=== PATIENT | female | born 1950 | race Caucasian/White ===

== ENCOUNTER 2017-06-01 10:00 | Inpatient (IN) ==
[~2017-06-01 10:00] MED LIST: Metoprolol XL (24 HR) Succ 25 MG TAB.ER.24H PO SCH
[2017-06-01] MEDS ORDERED: *HR* HYDROcodone/Acet 7.5/325 mg TABLET PO PRN (10:20)
[2017-06-01] MEDS ORDERED: Ondansetron ODT 4 MG TAB.RAPDIS SL PRN (12:27)
[2017-06-01] MEDS: Apixaban 5 MG TABLET PO SCH (20:51)
[2017-06-01] MEDS: Magnesium Oxide 400 MG TABLET PO SCH (20:51)
[2017-06-02 05:18] LABS: Basophils % 0.5 %; Eosinophils # 0.4 K/mcL (0.0-0.6); Hematocrit 45.1 % (35.3-44.9); Hemoglobin 15.7 g/dL (11.5-15.4); Immature Granulocytes % 0.3 % (0-4); Lymphocytes # 2.7 K/mcL (0.6-4.6); Lymphocytes % 33.8 %; Mean Corpuscular HGB Conc 34.8 g/dL (31.6-35.5); Mean Corpuscular Hemoglobin 31.8 pg (28.0-33.3); Mean Corpuscular Volume 91.3 fL (83.0-100.0); Mean Platelet Volume 12.2 fL (9.4-12.4); Monocytes # 0.6 K/mcL (0.0-1.3); Neutrophils # 4.2 K/mcL (1.6-8.9); Platelet Count 183 K/mcL (140-400); Red Blood Count 4.94 M/mcL (3.82-4.97); Red Cell Distribution Width 12.6 % (11.5-14.5); Segmented Neutrophils % 53.4 %
[2017-06-02 05:29] LABS: INR 1.4; Prothrombin Time 15.6 Seconds (9.4-12.1)
[2017-06-02 05:31] LABS: Activated Partial Thrombo Time 35.1 Seconds (26.0-36.0)
[2017-06-02 05:41] LABS: Calcium 9.2 mg/dL (8.6-10.3); Potassium 4.9 mEq/L (3.5-5.1)
[2017-06-02] MEDS: Magnesium Oxide 400 MG TABLET PO SCH ×2 (07:51→20:58)
[2017-06-02] MEDS: Metoprolol XL (24 HR) Succ 25 MG TAB.ER.24H PO SCH (07:51)
[2017-06-02] MEDS: Apixaban 5 MG TABLET PO SCH ×2 (08:03→20:58)
--- NOTE | 2017-06-02 10:56 | Internal Med Progress Note ---
Date of Encounter: 06/02/17 Time of Encounter: 10:45 - Assessment and plan (1) TIA (transient ischemic attack) Current Visit: No Status: Acute Assessment and plan: June 02. Continue Plavix Qualifiers: Transient cerebral ischemia type: unspecified Qualified Code(s): G45.9 - Transient cerebral ischemic attack, unspecified (2) Parkinsons disease Current Visit: No Status: Chronic Assessment and plan: June 02. Observe off medication. (3) Hypertension Current Visit: No Status: Chronic Assessment and plan: June 02. Continue Toprol Qualifiers: Hypertension type: essential hypertension Qualified Code(s): I10 - Essential (primary) hypertension (4) Atrial fibrillation Current Visit: No Status: Chronic Assessment and plan: June 02. Continue Eliquis Qualifiers: Atrial fibrillation type: chronic Qualified Code(s): I48.2 - Chronic atrial fibrillation - Subjective Interval history: June 02. She was hospitalized in acute care at [facility] May 26- after an episode of decreased responsiveness at home. After evaluation it was felt she possibly had right MCA distribution TIA. Carotid Doppler studies were negative. She was started empirically on Plavix. Oral anticoagulant was continued for underlying atrial fibrillation. ST was consulted for dysphagia but felt she did not require further workup or intervention. PT and OT were consulted and she made satisfactory progress but it was felt she would benefit from swing bed stay for ongoing therapy. She has no complaints today. Her reports she appears to be lethargic. He has noticed this multiple times over the past 2 weeks. - Constitutional Vitals: Temp Pulse Resp BP Pulse Ox 97.6 F 102 18 120/78 94 06/01/17 19:30 06/02/17 07:25 06/01/17 19:30 06/01/17 19:30 06/02/17 07:25 Exam: She is resting comfortably in bed. She denies pain or dyspnea. She is lethargic and drifted off to sleep in the few minutes I was in the room. I reviewed her medications and lab results. Internal Medicine: Result - Labs CBC & Chem 7: 06/02/17 05:00 06/02/17 05:00 Labs: Short CBC 06/02/17 Range/Units 05:00 WBC 7.9 (4.3-11.1) K/mcL Hgb 15.7 H (11.5-15.4) g/dL Hct 45.1 H (35.3-44.9) % Plt Count 183 (140-400) K/mcL Neutrophils # 4.2 (1.6-8.9) K/mcL BMP 06/02/17 05:00 Sodium 135 L Potassium 4.9 Chloride 100 Carbon Dioxide 27 BUN 19 Creatinine 1.22 H Glucose 138 H Calcium 9.2 - ABG Interpretation ABG results: PT/INR, D-dimer PT 15.6 Seconds (9.4-12.1) H 06/02/17 05:00 Consult Discharge Plan - Plan Referrals: Lexis Anderson DO [Primary Care Provider] - 1 week
[2017-06-03 03:54] LABS: Basophils # 0.1 K/mcL (0.0-0.2); Basophils % 0.6 %; Eosinophils # 0.3 K/mcL (0.0-0.6); Eosinophils % 3.8 %; Hematocrit 42.1 % (35.3-44.9); Hemoglobin 14.8 g/dL (11.5-15.4); Immature Granulocytes % 0.1 % (0-4); Lymphocytes # 2.7 K/mcL (0.6-4.6); Lymphocytes % 30.8 %; Mean Corpuscular HGB Conc 35.2 g/dL (31.6-35.5); Mean Corpuscular Hemoglobin 32.2 pg (28.0-33.3); Mean Corpuscular Volume 91.5 fL (83.0-100.0); Mean Platelet Volume 11.7 fL (9.4-12.4); Monocytes # 0.7 K/mcL (0.0-1.3); Monocytes % 7.9 %; Platelet Count 171 K/mcL (140-400); Red Cell Distribution Width 12.6 % (11.5-14.5); Segmented Neutrophils % 56.8 %
[2017-06-03 04:15] LABS: Calcium 8.9 mg/dL (8.6-10.3); Magnesium 1.9 mg/dL (1.6-2.6); Potassium 4.2 mEq/L (3.5-5.1)
[2017-06-03] MEDS: Metoprolol XL (24 HR) Succ 25 MG TAB.ER.24H PO SCH (07:46)
[2017-06-03] MEDS: Magnesium Oxide 400 MG TABLET PO SCH ×2 (07:47→20:15)
[2017-06-03] MEDS: Apixaban 5 MG TABLET PO SCH ×2 (07:47→20:15)
[2017-06-04] MEDS: Apixaban 5 MG TABLET PO SCH ×2 (08:44→22:46)
[2017-06-04] MEDS: Metoprolol XL (24 HR) Succ 25 MG TAB.ER.24H PO SCH (08:44)
[2017-06-04] MEDS: Magnesium Oxide 400 MG TABLET PO SCH ×2 (08:44→22:46)
[2017-06-04] MEDS: *HR* HYDROcodone/Acet 5/325 mg TABLET PO PRN (09:58)
--- NOTE | 2017-06-04 15:21 | Internal Med Progress Note ---
Date of Encounter: 06/04/17 Time of Encounter: 15:15 - Assessment and plan (1) TIA (transient ischemic attack) Current Visit: No Status: Acute Assessment and plan: June 02. Continue Plavix Qualifiers: Transient cerebral ischemia type: unspecified Qualified Code(s): G45.9 - Transient cerebral ischemic attack, unspecified (2) Parkinsons disease Current Visit: No Status: Chronic Assessment and plan: June 02. Observe off medication. (3) Hypertension Current Visit: No Status: Chronic Assessment and plan: June 02. Continue Toprol Qualifiers: Hypertension type: essential hypertension Qualified Code(s): I10 - Essential (primary) hypertension (4) Atrial fibrillation Current Visit: No Status: Chronic Assessment and plan: June 02. Continue Eliquis Qualifiers: Atrial fibrillation type: chronic Qualified Code(s): I48.2 - Chronic atrial fibrillation - Subjective Interval history: June 02. She was hospitalized in acute care at [facility] May 26- after an episode of decreased responsiveness at home. After evaluation it was felt she possibly had right MCA distribution TIA. Carotid Doppler studies were negative. She was started empirically on Plavix. Oral anticoagulant was continued for underlying atrial fibrillation. ST was consulted for dysphagia but felt she did not require further workup or intervention. PT and OT were consulted and she made satisfactory progress but it was felt she would benefit from swing bed stay for ongoing therapy. She has no complaints today. Her reports she appears to be lethargic. He has noticed this multiple times over the past 2 weeks. June 04. She has no new complaints and denies pain. She feels she is making some progress in therapy. - Constitutional Vitals: Temp Pulse Resp BP Pulse Ox 97.6 F 77 17 121/77 91 06/04/17 06:47 06/04/17 06:47 06/04/17 06:47 06/04/17 06:47 06/04/17 06:47 Exam: She is resting comfortably in bed. She is oriented to location and knows who I am. Her affect is slightly flat. Her speech is appropriate. I reviewed her medications and lab results. Internal Medicine: Result - Labs CBC & Chem 7: 06/03/17 03:40 06/03/17 03:40 - ABG Interpretation ABG results: PT/INR, D-dimer PT 15.6 Seconds (9.4-12.1) H 06/02/17 05:00 Consult Discharge Plan - Plan Referrals: Lexis Andreson DO [Primary Care Provider] - 1 week
[2017-06-05 05:20] LABS: Basophils # 0.1 K/mcL (0.0-0.2); Basophils % 0.8 %; Eosinophils # 0.3 K/mcL (0.0-0.6); Eosinophils % 4.1 %; Hematocrit 42.8 % (35.3-44.9); Immature Granulocytes % 0.3 % (0-4); Lymphocytes # 2.5 K/mcL (0.6-4.6); Lymphocytes % 38.2 %; Mean Corpuscular Hemoglobin 31.8 pg (28.0-33.3); Mean Corpuscular Volume 90.7 fL (83.0-100.0); Mean Platelet Volume 12.4 fL (9.4-12.4); Monocytes # 0.6 K/mcL (0.0-1.3); Monocytes % 9.7 %; Neutrophils # 3.1 K/mcL (1.6-8.9); Platelet Count 165 K/mcL (140-400); Red Blood Count 4.72 M/mcL (3.82-4.97); Red Cell Distribution Width 12.2 % (11.5-14.5); Segmented Neutrophils % 46.9 %
[2017-06-05 05:39] LABS: Calcium 8.9 mg/dL (8.6-10.3); Magnesium 1.9 mg/dL (1.6-2.6)
[2017-06-05] MEDS: Apixaban 5 MG TABLET PO SCH ×2 (08:22→20:32)
[2017-06-05] MEDS: Metoprolol XL (24 HR) Succ 25 MG TAB.ER.24H PO SCH (08:23)
[2017-06-05] MEDS: Magnesium Oxide 400 MG TABLET PO SCH ×2 (08:23→20:32)
[2017-06-05] MEDS: *HR* HYDROcodone/Acet 5/325 mg TABLET PO PRN (11:37)
[2017-06-06] MEDS: Magnesium Oxide 400 MG TABLET PO SCH ×2 (08:43→20:02)
[2017-06-06] MEDS: Metoprolol XL (24 HR) Succ 25 MG TAB.ER.24H PO SCH (08:43)
[2017-06-06] MEDS: Apixaban 5 MG TABLET PO SCH ×2 (08:45→20:02)
--- NOTE | 2017-06-06 15:44 | Internal Med Progress Note ---
Date of Encounter: 06/06/17 Time of Encounter: 15:35 - Assessment and plan (1) TIA (transient ischemic attack) Current Visit: No Status: Acute Assessment and plan: June 02. Continue Plavix Qualifiers: Transient cerebral ischemia type: unspecified Qualified Code(s): G45.9 - Transient cerebral ischemic attack, unspecified (2) Parkinsons disease Current Visit: No Status: Chronic Assessment and plan: June 02. Observe off medication. (3) Hypertension Current Visit: No Status: Chronic Assessment and plan: June 02. Continue Toprol June 06. Blood pressure show significant fluctuation. Continue present regimen. Qualifiers: Hypertension type: essential hypertension Qualified Code(s): I10 - Essential (primary) hypertension (4) Atrial fibrillation Current Visit: No Status: Chronic Assessment and plan: June 02. Continue Eliquis Qualifiers: Atrial fibrillation type: chronic Qualified Code(s): I48.2 - Chronic atrial fibrillation - Subjective Interval history: June 02. She was hospitalized in acute care at [facility] May 26 after an episode of decreased responsiveness at home. After evaluation it was felt she possibly had right MCA distribution TIA. Carotid Doppler studies were negative. She was started empirically on Plavix. Oral anticoagulant was continued for underlying atrial fibrillation. ST was consulted for dysphagia but felt she did not require further workup or intervention. PT and OT were consulted and she made satisfactory progress but it was felt she would benefit from swing bed stay for ongoing therapy. She has no complaints today. Her reports she appears to be lethargic. He has noticed this multiple times over the past 2 weeks. June 04. She has no new complaints and denies pain. She feels she is making some progress in therapy. June 06. She has no new complaints. She reports she has chronic back and neck pain but this is unchanged. - Constitutional Vitals: Temp Pulse Resp BP Pulse Ox 97.7 F 60 20 109/59 95 06/06/17 11:49 06/06/17 11:49 06/06/17 11:49 06/06/17 11:49 06/06/17 11:49 Exam: She is resting comfortably in bed and appears in no acute distress. Her affect is bright and cheerful. Her conversation is appropriate. I reviewed her medications and lab results. Internal Medicine: Result - Labs CBC & Chem 7: 06/05/17 04:31 06/05/17 04:31 - ABG Interpretation ABG results: PT/INR, D-dimer PT 15.6 Seconds (9.4-12.1) H 06/02/17 05:00 Consult Discharge Plan - Plan Referrals: Lexis Anderson DO [Primary Care Provider] - 1 week
[2017-06-07] MEDS: Metoprolol XL (24 HR) Succ 25 MG TAB.ER.24H PO SCH (08:25)
[2017-06-07] MEDS: Magnesium Oxide 400 MG TABLET PO SCH ×2 (08:25→20:22)
[2017-06-07] MEDS: Apixaban 5 MG TABLET PO SCH ×2 (08:25→20:22)
[2017-06-07] MEDS: *HR* HYDROcodone/Acet 5/325 mg TABLET PO PRN ×2 (11:17→18:16)
[2017-06-08] MEDS: Magnesium Oxide 400 MG TABLET PO SCH ×2 (08:00→19:31)
[2017-06-08] MEDS: Apixaban 5 MG TABLET PO SCH ×2 (08:00→19:32)
[2017-06-08] MEDS: Metoprolol XL (24 HR) Succ 25 MG TAB.ER.24H PO SCH (09:30)
[2017-06-08] MEDS: *HR* HYDROcodone/Acet 5/325 mg TABLET PO PRN ×2 (12:11→19:32)
[2017-06-09] MEDS: Apixaban 5 MG TABLET PO SCH ×2 (08:23→20:19)
[2017-06-09] MEDS: Magnesium Oxide 400 MG TABLET PO SCH ×2 (08:23→20:19)
[2017-06-09] MEDS: Metoprolol XL (24 HR) Succ 25 MG TAB.ER.24H PO SCH ×2 (08:27→17:28)
[2017-06-09] MEDS: *HR* HYDROcodone/Acet 5/325 mg TABLET PO PRN ×2 (08:48→17:27)
--- NOTE | 2017-06-09 16:44 | Internal Med Progress Note ---
Date of Encounter: 06/09/17 Time of Encounter: 16:35 - Assessment and plan (1) TIA (transient ischemic attack) Current Visit: No Status: Acute Assessment and plan: June 02. Continue Plavix Qualifiers: Transient cerebral ischemia type: unspecified Qualified Code(s): G45.9 - Transient cerebral ischemic attack, unspecified (2) Parkinsons disease Current Visit: No Status: Chronic Assessment and plan: June 02. Observe off medication. June 09. Symptoms have essentially resolved off Reglan. We will not workup or treat further. (3) Hypertension Current Visit: No Status: Chronic Assessment and plan: June 02. Continue Toprol June 06. Blood pressure show significant fluctuation. Continue present regimen. June 09. Blood pressures are remaining borderline low. Will decrease Toprol and start Lanoxin for rate control. Qualifiers: Hypertension type: essential hypertension Qualified Code(s): I10 - Essential (primary) hypertension (4) Atrial fibrillation Current Visit: No Status: Chronic Assessment and plan: June 02. Continue Eliquis Qualifiers: Atrial fibrillation type: chronic Qualified Code(s): I48.2 - Chronic atrial fibrillation - Subjective Interval history: June 02. She was hospitalized in acute care at [facility] May 26 after an episode of decreased responsiveness at home. After evaluation it was felt she possibly had right MCA distribution TIA. Carotid Doppler studies were negative. She was started empirically on Plavix. Oral anticoagulant was continued for underlying atrial fibrillation. ST was consulted for dysphagia but felt she did not require further workup or intervention. PT and OT were consulted and she made satisfactory progress but it was felt she would benefit from swing bed stay for ongoing therapy. She has no complaints today. Her reports she appears to be lethargic. He has noticed this multiple times over the past 2 weeks. June 04. She has no new complaints and denies pain. She feels she is making some progress in therapy. June 06. She has no new complaints. She reports she has chronic back and neck pain but this is unchanged. June 09. She has no new complaints. - Constitutional Vitals: Temp Pulse Resp BP Pulse Ox 97.6 F 99 17 99/67 97 06/08/17 19:19 06/09/17 10:53 06/09/17 10:53 06/09/17 10:53 06/08/17 19:19 Exam: She is resting comfortably in bed and appears in no acute distress. Her affect is bright and cheerful. Extremities show no edema. I reviewed her medications and lab results. Internal Medicine: Result - Labs CBC & Chem 7: 06/05/17 04:31 06/05/17 04:31 - ABG Interpretation ABG results: PT/INR, D-dimer PT 15.6 Seconds (9.4-12.1) H 06/02/17 05:00 Consult Discharge Plan - Plan Referrals: Lexis Anderson DO [Primary Care Provider] - 1 week
[2017-06-10] MEDS: *HR* HYDROcodone/Acet 5/325 mg TABLET PO PRN ×4 (03:11→23:26)
[2017-06-10 07:04] LABS: Basophils # 0.1 K/mcL (0.0-0.2); Basophils % 0.7 %; Eosinophils # 0.4 K/mcL (0.0-0.6); Eosinophils % 5.1 %; Hematocrit 42.1 % (35.3-44.9); Hemoglobin 14.7 g/dL (11.5-15.4); Immature Granulocytes % 0.1 % (0-4); Lymphocytes # 3.1 K/mcL (0.6-4.6); Lymphocytes % 45.5 %; Mean Corpuscular HGB Conc 34.9 g/dL (31.6-35.5); Mean Corpuscular Hemoglobin 31.8 pg (28.0-33.3); Mean Corpuscular Volume 91.1 fL (83.0-100.0); Mean Platelet Volume 11.8 fL (9.4-12.4); Monocytes # 0.5 K/mcL (0.0-1.3); Monocytes % 6.7 %; Neutrophils # 2.9 K/mcL (1.6-8.9); Platelet Count 195 K/mcL (140-400); Red Blood Count 4.62 M/mcL (3.82-4.97); Red Cell Distribution Width 12.3 % (11.5-14.5); Segmented Neutrophils % 41.9 %
[2017-06-10 07:25] LABS: BUN/Creatinine Ratio 15 (6-26); Blood Urea Nitrogen 15 mg/dL (8-23); Carbon Dioxide 28 mEq/L (23-29); Chloride 101 mEq/L (98-107); Glucose 116 mg/dL (70-105); Magnesium 1.9 mg/dL (1.6-2.6); Osmolality,Calculated 284 (280-300); Potassium 4.1 mEq/L (3.5-5.1); Sodium 136 mEq/L (136-145); eGFR For African Americans > 60 (> 60); eGFR For Non-African Americans 54 (> 60)
[2017-06-10] MEDS: Metoprolol XL (24 HR) Succ 25 MG TAB.ER.24H PO SCH (08:29)
[2017-06-10] MEDS: *HR* Digoxin 0.125 MG TABLET PO SCH (08:29)
[2017-06-10] MEDS: Apixaban 5 MG TABLET PO SCH ×2 (08:29→20:03)
[2017-06-10] MEDS: Magnesium Oxide 400 MG TABLET PO SCH ×2 (08:30→20:03)
[2017-06-11] MEDS: *HR* HYDROcodone/Acet 5/325 mg TABLET PO PRN ×3 (06:13→22:30)
[2017-06-11] MEDS: Magnesium Oxide 400 MG TABLET PO SCH ×2 (07:55→22:28)
[2017-06-11] MEDS: Metoprolol XL (24 HR) Succ 25 MG TAB.ER.24H PO SCH (07:55)
[2017-06-11] MEDS: *HR* Digoxin 0.125 MG TABLET PO SCH (07:55)
[2017-06-11] MEDS: Apixaban 5 MG TABLET PO SCH ×2 (07:55→22:28)
--- NOTE | 2017-06-11 11:38 | Internal Med Progress Note ---
Date of Encounter: 06/11/17 Time of Encounter: 11:30 - Assessment and plan (1) TIA (transient ischemic attack) Current Visit: No Status: Acute Assessment and plan: June 02. Continue Plavix Qualifiers: Transient cerebral ischemia type: unspecified Qualified Code(s): G45.9 - Transient cerebral ischemic attack, unspecified (2) Parkinsons disease Current Visit: No Status: Chronic Assessment and plan: June 02. Observe off medication. June 09. Symptoms have essentially resolved off Reglan. We will not workup or treat further. (3) Hypertension Current Visit: No Status: Chronic Assessment and plan: June 02. Continue Toprol June 06. Blood pressure show significant fluctuation. Continue present regimen. June 09. Blood pressures are remaining borderline low. Will decrease Toprol and start Lanoxin for rate control. June 11. Blood pressures remain borderline low. Will discontinue Toprol. Qualifiers: Hypertension type: essential hypertension Qualified Code(s): I10 - Essential (primary) hypertension (4) Atrial fibrillation Current Visit: No Status: Chronic Assessment and plan: June 02. Continue Eliquis Qualifiers: Atrial fibrillation type: chronic Qualified Code(s): I48.2 - Chronic atrial fibrillation - Subjective Interval history: June 02. She was hospitalized in acute care at [facility] May 26 after an episode of decreased responsiveness at home. After evaluation it was felt she possibly had right MCA distribution TIA. Carotid Doppler studies were negative. She was started empirically on Plavix. Oral anticoagulant was continued for underlying atrial fibrillation. ST was consulted for dysphagia but felt she did not require further workup or intervention. PT and OT were consulted and she made satisfactory progress but it was felt she would benefit from swing bed stay for ongoing therapy. She has no complaints today. Her reports she appears to be lethargic. He has noticed this multiple times over the past 2 weeks. June 04. She has no new complaints and denies pain. She feels she is making some progress in therapy. June 06. She has no new complaints. She reports she has chronic back and neck pain but this is unchanged. June 09. She has no new complaints. June 11. She has no new complaints. - Constitutional Vitals: Temp Pulse Resp BP Pulse Ox 97.7 F 72 16 109/66 95 06/11/17 07:47 06/11/17 07:47 06/11/17 07:47 06/11/17 07:47 06/11/17 08:00 Exam: She is resting comfortably in bed and appears in no acute distress. Her affect and speech are appropriate. I reviewed her medications and lab results. Internal Medicine: Result - Labs CBC & Chem 7: 06/10/17 06:25 06/10/17 06:25 - ABG Interpretation ABG results: PT/INR, D-dimer PT 15.6 Seconds (9.4-12.1) H 06/02/17 05:00 Consult Discharge Plan - Plan Referrals: Lexis Anderson DO [Primary Care Provider] - 1 week
[2017-06-12] MEDS: *HR* HYDROcodone/Acet 5/325 mg TABLET PO PRN ×2 (10:44→17:27)
[2017-06-12] MEDS: Apixaban 5 MG TABLET PO SCH ×2 (10:45→21:16)
[2017-06-12] MEDS: Magnesium Oxide 400 MG TABLET PO SCH ×2 (10:45→21:16)
[2017-06-12] MEDS: *HR* Digoxin 0.125 MG TABLET PO SCH (10:45)
[2017-06-13] MEDS: *HR* HYDROcodone/Acet 5/325 mg TABLET PO PRN ×4 (02:08→21:01)
[2017-06-13] MEDS: *HR* Digoxin 0.125 MG TABLET PO SCH (07:44)
[2017-06-13] MEDS: Apixaban 5 MG TABLET PO SCH ×2 (07:44→21:02)
[2017-06-13] MEDS: Magnesium Oxide 400 MG TABLET PO SCH ×2 (07:44→21:02)
[2017-06-14 06:44] VITALS: BP 149/56
[2017-06-14] MEDS: *HR* Digoxin 0.125 MG TABLET PO SCH (07:56)
[2017-06-14] MEDS: Apixaban 5 MG TABLET PO SCH (07:56)
[2017-06-14] MEDS: Magnesium Oxide 400 MG TABLET PO SCH (07:56)
--- NOTE | 2017-06-14 10:17 | Discharge Summary ---
Date of Encounter: 06/14/17 Time of Encounter: 10:00 - Discharge Diagnosis (1) TIA (transient ischemic attack) Priority: Primary Status: Acute Qualifiers: Transient cerebral ischemia type: unspecified Qualified Code(s): G45.9 - Transient cerebral ischemic attack, unspecified (2) Parkinsons disease Priority: Secondary Status: Chronic (3) Hypertension Priority: Secondary Status: Chronic Qualifiers: Hypertension type: essential hypertension Qualified Code(s): I10 - Essential (primary) hypertension (4) Atrial fibrillation Priority: Secondary Status: Chronic Qualifiers: Atrial fibrillation type: chronic Qualified Code(s): I48.2 - Chronic atrial fibrillation Hospital course: Ms. García is a 66 year old female who was hospitalized in acute care at [facility] May 26- after an episode of decreased responsiveness at home. After evaluation it was felt she possibly had right MCA distribution TIA. Carotid Doppler studies were negative. She was started empirically on Plavix. Oral anticoagulant was continued for underlying atrial fibrillation. ST was consulted for dysphagia but felt she did not require further workup or intervention. PT and OT were consulted and she made satisfactory progress but it was felt she would benefit from swing bed stay for ongoing therapy. She was admitted to swing bed on June 01 and continued PT and OT. She made satisfactory progress. It was felt she would benefit from ongoing therapy and arrangements were completed on June 14 for her to be discharged to [facility] fast- track. No further TIA events on her anticoagulant and antiplatelet regimen. Her Parkinson's symptoms essentially resolved off Reglan. Toprol was discontinued for borderline low blood pressure. Her pressure improved and she will remain off antihypertensive medication. She will follow with me at [facility]. - Time Spent with Patient Total time spent providing and/or coordinating discharge services: - Discharge Medications Home Medications: Apixaban [Eliquis] 5 mg PO BID 05/26/17 [History] DULoxetine [Cymbalta] 30 mg PO DAILY 05/26/17 [History] Ondansetron ODT [Zofran ODT] 8 mg SL Q12HR PRN 05/26/17 [History] Propafenone HCl [Rythmol Sr] 225 mg PO Q8HR 05/26/17 [History] Clopidogrel [Plavix] 75 mg PO DAILY tablet 06/01/17 [Rx] Digoxin [Lanoxin] 0.125 mg PO DAILY tablet 06/14/17 [Rx] Hydrocodone/Acetaminophen [Hydrocodone-Acetamin 7.5-300] 0.5 each PO Q6H PRN 14 Days #28 tablet 06/14/17 [Rx] Methyl Salicylate/Menth/Camph [Bengay Ultra Strength Cream] 113 gm TP BID 365 Days cream..g. 06/14/17 [Rx] Allergies/Adverse Reactions: 3 Allergy/AdvReac Type Severity Reaction Status Date / Time aspirin AdvReac See Verified 05/26/17 11:51 Comments Date of admission: 06/01/17 10:00 Primary care physician: Lexis Anderson Consults: 06/01/17 10:16 Consult to Occupational Therapy [CONS] Routine Comment: Eval, Develop, and Implement P.O.C. Reason for Consult: Eval, Develop, and Implement P.O.C. - Parkinson's - TIA Consult to Physical Therapy [CONS] Routine Comment: Eval, Develop, and Implement P.O.C. Reason for Consult: Eval, Develop, and Implement P.O.C. - Parkinson's / TIA Consult to Technical Sales Advisor [CONS] Routine Reason for SW Consult: D/C planning - Constitutional Vitals: Temp Pulse Resp BP Pulse Ox 97.3 F L 66 17 149/56 96 06/14/17 06:43 06/14/17 06:43 06/14/17 06:43 06/14/17 06:43 06/14/17 06:43 - Patient Status Disposition: Transfer SNF Functional capacity at discharge: uses cane/walker Overall status at discharge: patient is progressing back to baseline - Discharge Instructions - Diet and Activity Activity: as per physical therapy Diet: regular diet - VTE Documentation of Mechanical Device: Graduated compression elastic hosiery
--- NOTE | 2017-06-14 10:29 | Physician Discharge Referral ---
ExtendedCare Referral Info Transfer To: [facility] Provider in Charge: Jam Provider in Charge after Transfer: PCP Fátima) Institutional Level of Care: Skilled - Diagnosis (1) TIA (transient ischemic attack) Priority: Primary Status: Acute (2) Parkinsons disease Priority: Secondary Status: Chronic (3) Hypertension Priority: Secondary Status: Chronic (4) Atrial fibrillation Priority: Secondary Status: Chronic Prognosis: Good Aware of Diagnosis: Patient, Family Aware of Prognosis: Patient, Family - Transfer Medications Prescriptions: Hydrocodone/Acetaminophen [Hydrocodone-Acetamin 7.5-300] 0.5 each PO Q6H PRN 14 Days #28 tablet PRN Reason: pain Methyl Salicylate/Menth/Camph [Bengay Ultra Strength Cream] 113 gm TP BID 365 Days cream..g. Home Medications: Apixaban [Eliquis] 5 mg PO BID 05/26/17 [History] DULoxetine [Cymbalta] 30 mg PO DAILY 05/26/17 [History] Ondansetron ODT [Zofran ODT] 8 mg SL Q12HR PRN 05/26/17 [History] Propafenone HCl [Rythmol Sr] 225 mg PO Q8HR 05/26/17 [History] Clopidogrel [Plavix] 75 mg PO DAILY tablet 06/01/17 [Rx] Digoxin [Lanoxin] 0.125 mg PO DAILY tablet 06/14/17 [Rx] Hydrocodone/Acetaminophen [Hydrocodone-Acetamin 7.5-300] 0.5 each PO Q6H PRN 14 Days #28 tablet 06/14/17 [Rx] Methyl Salicylate/Menth/Camph [Bengay Ultra Strength Cream] 113 gm TP BID 365 Days cream..g. 06/14/17 [Rx] Allergies/Adverse Reactions: 3 Allergy/AdvReac Type Severity Reaction Status Date / Time aspirin AdvReac See Verified 05/26/17 11:51 Comments - Respiratory Orders Smoking Cessation: Smoking cessation has been advised. For more information, call the [place] Tobacco Quit Line at 5-649-JFFS-NOW. - Lab Orders Lab Orders: Other (include drug levels w/frequency) (CBC with differential, BMP , magnesium, dig level in 1 week) - Mobility Orders Ambulate - Rehabiliation Orders Rehab Potential: Good Rehab Orders: Evaluation for Physical Therapy, Evaluation for Occupational Therapy - Diet Orders Regular CERTIFICATION: I certify that the transfer of the above named patient to an Extended Care Facility is necessary for the continuing treatment of the diagnosis listed. The above information is true and accurate reflection of patient's current condition. Confidential - Redisclosure prohibited without a patient's written consent.
== END 2017-06-14 11:45 | DRG 57 ==
LOC: INPPIK 10:00
PROVIDERS: ADMIT Internal Medicine; ATTEND Internal Medicine

== ENCOUNTER 2017-06-29 17:30 | Inpatient (IN) ==
[2017-06-29] MEDS ORDERED: 0.9 % Sodium Chloride 500 ML IVC ONE (17:32)
--- NOTE | 2017-06-29 17:34 | Emergency Department Note ---
Disposition Clinical Impression: Weakness UTI (urinary tract infection) Qualifiers: Urinary tract infection type: acute cystitis Hematuria presence: with hematuria Qualified Code(s): N30.01 - Acute cystitis with hematuria Disposition: Admitted As Inpatient Condition: Good Referrals: Lexis Anderson DO [Primary Care Provider] - Forms: ED Satisfaction Letter Altered Mental Status HPI - General Chief Complaint: ED General Medical Stated Complaint: elevated temp, decreased activity Time Seen by Provider: 06/29/17 17:31 Source: patient, family, EMS Mode of arrival: EMS Limitations: no limitations Nursing Notes Reviewed: Yes Vital Signs Reviewed: Yes - History of Present Illness HPI Narrative: Patient has reportedly had some moaning today and has indicated she has had some diffuse body pain. She has received a dose of hydrocodone for this as well as 0.5 mg of Xanax. She then seemed to be acting more confused and has been transferred in for evaluation. She has had some fevers and chills and a temperature 101.6. She denies cough or shortness of breath but she was noted by EMS to have some occasional coughing. She is saturating 92% on her usual oxygen at 2 L nasal cannula for EMS. She reports generalized body pain without headache. She denies any localizing chest pain or abdominal pain. She denies any nausea, vomiting or diarrhea. She denies any urinary frequency or dysuria or flank pain. She has not noted any ill exposures. She has not had any specific fall or injury or any localized numbness, tingling or weakness down her arms or legs. She is answering questions appropriately in our emergency department. MD complaint: altered mental status, confusion Onset (ago): hour(s) Timing confirmed by: family member Pain Severity: moderate Consistency of Symptoms: constant Associated symptoms: Reports: cough, fever, chills, loss of appetite, malaise, weakness, difficulty walking. Denies: diaphoresis, headaches, nausea/vomiting, rash, seizure, shortness of breath, syncope, foul smelling urine, diarrhea, incontinence Treatments prior to arrival: oxygen - Related Data Home Medications Medication Instructions Recorded Confirmed Apixaban [Eliquis] 5 mg PO BID 05/26/17 06/29/17 DULoxetine [Cymbalta] 30 mg PO DAILY 05/26/17 06/29/17 Ondansetron ODT [Zofran ODT] 4 mg SL Q12HR PRN 05/26/17 06/29/17 Propafenone HCl [Rythmol Sr] 225 mg PO BID 05/26/17 06/29/17 ALPRAZolam [Xanax 0.5 MG Tablet] 0.5 mg PO Q8H PRN 06/29/17 06/29/17 Acetaminophen [Extra Strength 500 mg PO Q4H PRN 06/29/17 06/29/17 Non-Aspirin] Previous Rx's Medication Instructions Recorded Clopidogrel [Plavix] 75 mg PO DAILY tablet 06/01/17 Digoxin [Lanoxin] 0.125 mg PO DAILY tablet 06/14/17 Hydrocodone/Acetaminophen 0.5 each PO Q6H PRN 14 Days #28 06/14/17 [Hydrocodone-Acetamin 7.5-300] tablet Methyl Salicylate/Menth/Camph 113 gm TP BID 365 Days cream..g. 06/14/17 [Bengay Ultra Strength Cream] Allergies Allergy/AdvReac Type Severity Reaction Status Date / Time aspirin AdvReac See Verified 05/26/17 11:51 Comments All systems ED: reviewed and negative except as stated. Past Medical History - Past Medical History Attestation: Yes The following information was validated with the patient. Source: patient, old records reviewed, obtained from family, nursing notes reviewed Medical history: Reports: arthritis (Gout), atrial fibrillation (On anticoagulation), GERD, hyperlipidemia, hypertension, TIA, other (Parkinson's, patient chronically on 2 L of oxygen). Denies: asthma, COPD, coronary artery disease, DVT, myocardial infarction, pulmonary embolus Surgical history: Reports: cholecystectomy, pacemaker Psychiatric history: Reports: depression - Social History Smoking Status: Never smoker Smokeless Tobacco Status: No Alcohol use: Reports: none Drug use: Reports: unknown Physical Exam - General Limitations: physical limitation General appearance: alert, in no apparent distress, other (Occasionally moaning) - Head Head exam: atraumatic, normocephalic, normal inspection - Eye Eye exam: Present: normal appearance, PERRL, EOMI. Absent: scleral icterus, conjunctival injection - ENT ENT exam: normal exam, normal oropharynx, mucous membranes dry - Neck Neck exam: Present: normal inspection, full ROM, trachea midline. Absent: tenderness, meningismus, lymphadenopathy - Chest Chest inspection: Present: normal inspection, symmetric chest wall rise - Respiratory Respiratory exam: Present: normal lung sounds bilaterally. Absent: respiratory distress, wheezes, prolonged expiratory phase - Cardiovascular Cardiovascular exam: Present: regular rate, normal rhythm, tachycardia, normal heart sounds - Abdominal Exam Abdominal exam: Present: soft, Non-Tender, normal bowel sounds. Absent: tenderness, distention, guarding, rebound, rigidity, Murillo's sign, tenderness at McBurney's Point - Extremities Exam Extremities exam: Present: normal inspection, full ROM, normal capillary refill. Absent: tenderness, pedal edema, calf tenderness - Expanded Lower Extremity Exam Neurovascular/Tendon exam: Present: normal capillary refill. Absent: motor deficit, sensory deficit, tendon deficit Gait: not tested/not observed - Back Exam Back exam: Present: normal inspection, full ROM. Absent: tenderness, CVA tenderness (R), CVA tenderness (L) - Neurological Exam Neurological exam: Present: alert. Absent: motor sensory deficit - Psychiatric Psychiatric exam: Present: normal affect, normal mood - Skin Skin exam: Present: warm, dry, intact, normal color. Absent: rash, cyanosis, diaphoresis, pallor Course Course Narrative: 1909: Lab and imaging results been discussed with the patient and family. I have written for her to receive her first dose of Rocephin with plan for inpatient observation, continued hydration and continued antibiotic therapy. A page has been placed to Dr. Polk for this purpose. Vital Signs Temperature 101.2 F H 06/29/17 17:31 Pulse Rate 99 06/29/17 17:31 Respiratory Rate 21 06/29/17 17:31 Blood Pressure 135/65 06/29/17 17:31 O2 Sat by Pulse Oximetry 95 06/29/17 17:31 Temperature 101.2 F H 06/29/17 17:31 Pulse Rate 90 06/29/17 19:04 Respiratory Rate 20 06/29/17 19:04 Blood Pressure 139/73 06/29/17 19:04 O2 Sat by Pulse Oximetry 95 06/29/17 19:04 Oxygen Delivery Oxygen Delivery Nasal Cannula Altered Mental Status - Differential Diagnosis Likely: altered mental status, dementia, hypoglycemia, hyponatremia, subarachnoid hemorrhage, sepsis - Medical Records Medical records reviewed: Yes I reviewed the patient's medical records. - Lab Data Lab results reviewed: Yes I reviewed the patient's lab results. Lab results narrative: Influenza A and influenza B are negative. Result diagrams: 06/29/17 18:04 06/29/17 18:04 Lab Results 06/29/17 06/29/17 06/29/17 Range/Units 16:50 18:04 18:04 WBC 12.8 H (4.3-11.1) K/mcL RBC 4.20 (3.82-4.97) M/mcL Hgb 13.3 (11.5-15.4) g/dL Hct 37.4 (35.3-44.9) % MCV 89.0 (83.0-100.0) fL MCH 31.7 (28.0-33.3) pg MCHC 35.6 H (31.6-35.5) g/dL RDW 12.4 (11.5-14.5) % Plt Count 211 (140-400) K/mcL MPV 10.4 (9.4-12.4) fL Immature Gran % 0.3 (0-4) % Seg Neutrophils % 79.3 % Lymphocytes % 13.4 % Monocytes % 6.2 % Eosinophils % 0.6 % Basophils % 0.2 % Neutrophils # 10.2 H (1.6-8.9) K/mcL Lymphocytes # 1.7 (0.6-4.6) K/mcL Monocytes # 0.8 (0.0-1.3) K/mcL Eosinophils # 0.1 (0.0-0.6) K/mcL Basophils # 0.0 (0.0-0.2) K/mcL Sodium 133 L (136-145) mEq/L Potassium 4.0 (3.5-5.1) mEq/L Chloride 98 (98-107) mEq/L Carbon Dioxide 27 (23-29) mEq/L BUN 8 (8-23) mg/dL Creatinine 0.90 (0.60-1.20) mg/dL Est GFR ( Amer) > 60 (> 60) Est GFR (Non-Af Amer) > 60 (> 60) BUN/Creatinine Ratio 9 (6-26) Glucose 152 H (70-105) mg/dL Calculated Osmolality 277 L (280-300) Lactic Acid (0.5-2.2) mmol/L Calcium 8.5 L (8.6-10.3) mg/dL Urine Color Priscilla A (Yellow) Urine Clarity Cloudy A (Clear) Urine pH 5.5 (5.0-8.0) pH Units Ur Specific Holcomb 1.020 (1.010-1.025) Urine Protein 100 H (Neg-Trace) mg/dL Urine Glucose (UA) Normal (Normal) mg/dL Urine Ketones Negative (Negative) mg/dL Urine Blood Large H (Negative) Urine Nitrite Negative (Negative) Urine Bilirubin Small H (Negative) Urine Urobilinogen Normal (Normal) mg/dL Ur Leukocyte Esterase Moderate H (Negative) Urine Microscopic RBC TNTC H (0-3) per hpf Urine Microscopic WBC TNTC H (0-3) per hpf Ur Squamous Epith Cells Few (None-Few) per lpf Urine Bacteria Many H (None-Few) per hpf Urine Mucus Moderate H (Few) Ur Culture Indicated? YES A (NO) Digoxin 1.7 (0.8-2.0) ng/mL 06/29/17 Range/Units 18:04 WBC (4.3-11.1) K/mcL RBC (3.82-4.97) M/mcL Hgb (11.5-15.4) g/dL Hct (35.3-44.9) % MCV (83.0-100.0) fL MCH (28.0-33.3) pg MCHC (31.6-35.5) g/dL RDW (11.5-14.5) % Plt Count (140-400) K/mcL MPV (9.4-12.4) fL Immature Gran % (0-4) % Seg Neutrophils % % Lymphocytes % % Monocytes % % Eosinophils % % Basophils % % Neutrophils # (1.6-8.9) K/mcL Lymphocytes # (0.6-4.6) K/mcL Monocytes # (0.0-1.3) K/mcL Eosinophils # (0.0-0.6) K/mcL Basophils # (0.0-0.2) K/mcL Sodium (136-145) mEq/L Potassium (3.5-5.1) mEq/L Chloride (98-107) mEq/L Carbon Dioxide (23-29) mEq/L BUN (8-23) mg/dL Creatinine (0.60-1.20) mg/dL Est GFR ( Amer) (> 60) Est GFR (Non-Af Amer) (> 60) BUN/Creatinine Ratio (6-26) Glucose (70-105) mg/dL Calculated Osmolality (280-300) Lactic Acid 1.8 (0.5-2.2) mmol/L Calcium (8.6-10.3) mg/dL Urine Color (Yellow) Urine Clarity (Clear) Urine pH (5.0-8.0) pH Units Ur Specific Holcomb (1.010-1.025) Urine Protein (Neg-Trace) mg/dL Urine Glucose (UA) (Normal) mg/dL Urine Ketones (Negative) mg/dL Urine Blood (Negative) Urine Nitrite (Negative) Urine Bilirubin (Negative) Urine Urobilinogen (Normal) mg/dL Ur Leukocyte Esterase (Negative) Urine Microscopic RBC (0-3) per hpf Urine Microscopic WBC (0-3) per hpf Ur Squamous Epith Cells (None-Few) per lpf Urine Bacteria (None-Few) per hpf Urine Mucus (Few) Ur Culture Indicated? (NO) Digoxin (0.8-2.0) ng/mL - Radiology Data Radiology results reviewed: Yes I reviewed the patient's radiology results. Single view chest x-ray is performed. This does not demonstrate evidence for infiltrate, effusion, pneumothorax, foreign body or heart failure. The cardiac silhouette is normal. I do not see abnormality to the osseous structures of the chest. This is on my interpretation. CT head is performed. This is reviewed on bone and soft tissue windows. There is no evidence for acute intracranial bleed, shift, mass or edema. Mastoids and sinuses appear normal. There is no fracture evident. This is on my interpretation. Impressions Chest X-Ray 06/29/17 17:32 IMPRESSION: The examination is slightly limited due to patient rotation and low lung volumes. There are patchy opacities at the left lung base which could represent pneumonia versus atelectasis. D/ / 06/29/2017 18:46:38 Olu Rodgers MD / [email or web address] Interpreting Provider: Olu Rodgers MD Head CT 06/29/17 17:32 IMPRESSION: 1. No acute intracranial abnormality. D/ / Bryn Chaves MD / Bryn Chaves MD Interpreting Provider: Bryn Chaves MD Checklist - LKW: 3-4.5 hrs Add. Warnings/Precautions Patient/family understanding: The patient/family members have been counseled and understood the risk, benefit , and alternatives of treatment.
[2017-06-29] MEDS ORDERED: 0.9 % Sodium Chloride 1,000 ML IVC SCH (17:45)
[2017-06-29 18:17] LABS: Basophils % 0.2 %; Eosinophils # 0.1 K/mcL (0.0-0.6); Eosinophils % 0.6 %; Hematocrit 37.4 % (35.3-44.9); Hemoglobin 13.3 g/dL (11.5-15.4); Immature Granulocytes % 0.3 % (0-4); Lymphocytes # 1.7 K/mcL (0.6-4.6); Lymphocytes % 13.4 %; Mean Corpuscular HGB Conc 35.6 g/dL (31.6-35.5); Mean Corpuscular Hemoglobin 31.7 pg (28.0-33.3); Mean Platelet Volume 10.4 fL (9.4-12.4); Monocytes # 0.8 K/mcL (0.0-1.3); Monocytes % 6.2 %; Neutrophils # 10.2 K/mcL (1.6-8.9); Platelet Count 211 K/mcL (140-400); Red Cell Distribution Width 12.4 % (11.5-14.5); Segmented Neutrophils % 79.3 %
[2017-06-29 18:36] LABS: BUN/Creatinine Ratio 9 (6-26); Blood Urea Nitrogen 8 mg/dL (8-23); Calcium 8.5 mg/dL (8.6-10.3); Carbon Dioxide 27 mEq/L (23-29); Chloride 98 mEq/L (98-107); Digoxin 1.7 ng/mL (0.8-2.0); Glucose 152 mg/dL (70-105); Osmolality,Calculated 277 (280-300); Sodium 133 mEq/L (136-145); eGFR For African Americans > 60 (> 60); eGFR For Non-African Americans > 60 (> 60)
[2017-06-29 19:03] LABS: Bilirubin,Urine Small (Negative); Blood,Urine Large (Negative); Clarity,Urine Cloudy (Clear); Color,Urine Amber (Yellow); Glucose,Urine (UA) Normal (Normal); Ketones,Urine Negative (Negative); Leukocyte Esterase,Urine Moderate (Negative); Nitrite,Urine Negative (Negative); PH,Urine 5.5 pH Units (5.0-8.0); Protein,Urine 100 mg/dL (Neg-Trace); Urobilinogen,Urine Normal (Normal)
[2017-06-29 19:09] LABS: RBC,Urine TNTC per hpf (0-3); Squamous Epithelial Cell,Urine Few per lpf (None-Few); WBC,Urine TNTC per hpf (0-3)
[2017-06-29 19:10] LABS: Bacteria,Urine Many per hpf (None-Few); Mucus,Urine Moderate (Few)
[2017-06-29] MEDS ORDERED: ALPRAZolam 0.5 MG TABLET PO PRN (20:54)
[2017-06-29] MEDS ORDERED: D5% in Water 1,000 ML IVC PRN (20:54)
[2017-06-29] MEDS ORDERED: Ondansetron 4 MG/2 ML VIAL IVP PRN (20:54)
[2017-06-29] MEDS ORDERED: Dextrose Gel 15 GM PO PRN ×2 (20:54)
[2017-06-29] MEDS ORDERED: *HR* Dextrose 50 % in Water (Syg) 50 ML SYRINGE IVP PRN (20:54)
[2017-06-29] MEDS ORDERED: Naloxone 0.4 MG/ML INJ IVP PRN (20:54)
[2017-06-29] MEDS: Apixaban 5 MG TABLET PO SCH (21:41)
[2017-06-29] MEDS: *HR* HYDROcodone/Acet 7.5/325 mg TABLET PO PRN (21:41)
[2017-06-29] MEDS: 0.9 % Sodium Chloride 1,000 ML IVC SCH (21:45)
[2017-06-30] MEDS: *HR* HYDROcodone/Acet 7.5/325 mg TABLET PO PRN ×2 (04:46→20:52)
[2017-06-30] MEDS: 0.9 % Sodium Chloride 1,000 ML IVC SCH ×2 (06:32→13:15)
[2017-06-30] MEDS: Insulin LISPRO 300 UNITS/3 ML VIAL SQ SCH ×3 (07:58→17:08)
[2017-06-30] MEDS: *HR* Digoxin 0.125 MG TABLET PO SCH (07:59)
[2017-06-30] MEDS: Apixaban 5 MG TABLET PO SCH ×2 (08:01→20:53)
[2017-06-30 08:41] LABS: Acinetobacter baumannii by PCR Not Detected (Not Detect); Candida albicans by PCR Not Detected (Not Detect); Candida glabrata by PCR Not Detected (Not Detect); Candida krusei by PCR Not Detected (Not Detect); Candida parapsilosis by PCR Not Detected (Not Detect); Candida tropicalis by PCR Not Detected (Not Detect); Enterococcus by PCR Not Detected (Not Detect); Escherichia coli by PCR Not Detected (Not Detect); Klebsiella oxytoca by PCR Not Detected (Not Detect); Klebsiella pneumoniae by PCR ***DETECTED*** (Not Detect); Pseudomonas aeruginosa by PCR Not Detected (Not Detect); Serratia marcescens by PCR Not Detected (Not Detect); Staphylococcus aureus by PCR Not Detected (Not Detect); Streptococcus agalactiae(B)PCR Not Detected (Not Detect); Streptococcus by PCR Not Detected (Not Detect); Streptococcus pneumoniae PCR Not Detected (Not Detect); Streptococcus pyogenes (A) PCR Not Detected (Not Detect); blaKPC Carbapenem-Resist Gene Not Detected (Not Detect)
[2017-06-30] MEDS ORDERED: cefTRIAXone 2,000 MG in Water for inj. (sterile) 20 ML 20 ML IVP SCH (09:00)
--- NOTE | 2017-06-30 09:59 | Internal Med History&Physical ---
Date of Encounter: 06/30/17 Time of Encounter: 09:30 Assessment and Plan (1) UTI (urinary tract infection) Current visit: Yes Status: Acute She was given Rocephin in emergency room. Will continue this with Zithromax and lactobacillus. Qualifiers: Urinary tract infection type: acute cystitis Hematuria presence: with hematuria Qualified Code(s): N30.01 - Acute cystitis with hematuria (2) Pneumonia Current visit: Yes Status: Acute Continue Rocephin and Zithromax with lactobacillus. Qualifiers: Pneumonia type: due to unspecified organism Laterality: left Lung location: lower lobe of lung Qualified Code(s): J18.1 - Lobar pneumonia, unspecified organism (3) Hypertension Current visit: No Status: Chronic Continue Zestril and monitor blood pressure. Qualifiers: Hypertension type: essential hypertension Qualified Code(s): I10 - Essential (primary) hypertension (4) Atrial fibrillation Current visit: No Status: Chronic Continue Rythmol and Eliquis Qualifiers: Atrial fibrillation type: chronic Qualified Code(s): I48.2 - Chronic atrial fibrillation Internal Medicine - H&P: HPI Chief complaint: Fevers and chills Admitted From: Emergency Dept Plans for Post Hospital Care: Transfer Him Assistant Care History of present illness: Ms. García is a 66 year old female who had onset of fevers and chills at the custodial yesterday. Her family noted she had poor oral intake and did not feel well. She was evaluated in emergency room and found to have UTI and possible left lower lobe pneumonia. She was admitted to [facility] floor for ongoing care needs. She had been discharged from [facility] swing bed 06/14/2017 after acute care admission 05/26/2017 for altered mental status. She progressed well during her acute care in swing bed stay but it was felt she would benefit from ongoing therapy at [facility]. Past Med Surg Social Fam HX - Past Medical History Medical history: arthritis, atrial fibrillation, GERD, hyperlipidemia, hypertension, TIA, other Psychiatric history: depression - Past Surgical History Surgical History: cholecystectomy, pacemaker - Social History Smoking Status: Never smoker Smokeless Tobacco Status: No Alcohol use: none Drug use: unknown Internal Medicine - H&P: Meds Apixaban [Eliquis] 5 mg PO BID 05/26/17 [History] DULoxetine [Cymbalta] 30 mg PO DAILY 05/26/17 [History] Ondansetron ODT [Zofran ODT] 4 mg SL Q12HR PRN 05/26/17 [History] Propafenone HCl [Rythmol Sr] 225 mg PO BID 05/26/17 [History] Clopidogrel [Plavix] 75 mg PO DAILY tablet 06/01/17 [Rx] Digoxin [Lanoxin] 0.125 mg PO DAILY tablet 06/14/17 [Rx] Hydrocodone/Acetaminophen [Hydrocodone-Acetamin 7.5-300] 0.5 each PO Q6H PRN 14 Days #28 tablet 06/14/17 [Rx] Methyl Salicylate/Menth/Camph [Bengay Ultra Strength Cream] 113 gm TP BID 365 Days cream..g. 06/14/17 [Rx] ALPRAZolam [Xanax 0.5 MG Tablet] 0.5 mg PO Q8H PRN 06/29/17 [History] Acetaminophen [Extra Strength Non-Aspirin] 500 mg PO Q4H PRN 06/29/17 [History] 3 Allergy/AdvReac Type Severity Reaction Status Date / Time aspirin AdvReac See Verified 05/26/17 11:51 Comments All Systems PM: A 10-system review of systems was performed and is negative for pertinent findings except as documented above in the HPI. Review of systems: Review of systems from her May 2017 [facility] hospitalization were reviewed and revised as below. Gen.: Her weight has decreased approximately 45 pounds in the past year. This is attributed to nausea from gastroparesis Cardiovascular: She has history of hypertension but no known [place] heart failure angina DVT or pulmonary embolus. She had a pacemaker placed January 2017. She was diagnosed with atrial fibrillation approximately 18 months ago. Respiratory: She is a lifelong nonsmoker and has no known chronic lung disease GI: She complained of diarrhea at time of last admission as well as nausea. Her medications were adjusted and her abdominal discomfort lessened and bowel function has normalized. She has had cholecystectomy. Denies disorders of her liver or exocrine pancreas : She denies hematuria or dysuria or kidney stones Neurologic: She denies large distribution strokes or seizures. She had parkinsonian features at time of last admission but symptoms resolved after metoclopramide was discontinued. Endocrine: She has been diagnosed with DM 2 but is now diet-controlled. She has hyperlipidemia history. She has thyroid nodules. Hematology/oncology: She denies blood disorders cancers or anemia Psychiatric: She denies anxiety depression or other mental health issues Muscle skeletal: She history of gout and DJD but denies other bone joint or muscle disorders. - Constitutional Vitals: Temp Pulse Resp BP Pulse Ox 98.6 F 86 18 131/69 95 06/30/17 07:12 06/30/17 07:12 06/30/17 07:12 06/30/17 07:12 06/30/17 07:12 Exam: Gen.: She is a well-developed overweight female lying in bed who appears in no severe distress HEENT: Head is atraumatic and normocephalic. Eyes: EOMI. There is no scleral icterus. Mouth: Mucosa is dry Neck: Supple and nontender. There is no thyromegaly or adenopathy noted. Heart: Regular without murmurs gallops or ectopics Lungs: No wheezes or crackles are heard Abdomen: Soft and nontender. Extremities: She has a healed scar over the left anterior knee from present previous knee replacement surgery. There is no edema of her ankles or dorsum of the feet. Dorsalis pedis and posttibial pulses are trace palpable bilaterally. Neurologic: Mental status: She is moaning and answers a few questions with yes/ no answers. Cranial nerves: Smile is symmetric. Forehead wrinkles bilaterally. Tongue protrudes midline. EOMI. Motor: There is no pronator drift. Cerebellar: Finger to nose is intact bilaterally Skin: Warm and dry Internal Med - H&P Results - Labs CBC & Chem 7: 06/29/17 18:04 06/29/17 18:04
[2017-06-30] MEDS: Azithromycin 500 MG in D5% in Water 250 ML IVPB SCH (12:09)
[2017-06-30] MEDS: Lactobacillus 1 EACH CAP.SPRINK PO SCH (20:53)
[2017-06-30] MEDS: cefTRIAXone 2,000 MG in Water for inj. (sterile) 20 ML 20 ML IVP SCH (20:53)
[2017-07-01] MEDS: 0.9 % Sodium Chloride 1,000 ML IVC SCH ×2 (02:21→16:51)
[2017-07-01] MEDS: *HR* HYDROcodone/Acet 7.5/325 mg TABLET PO PRN ×3 (03:28→20:16)
[2017-07-01 05:29] LABS: Basophils % 0.3 %; Eosinophils # 0.2 K/mcL (0.0-0.6); Eosinophils % 1.7 %; Hematocrit 30.1 % (35.3-44.9); Hemoglobin 10.6 g/dL (11.5-15.4); Immature Granulocytes % 0.3 % (0-4); Lymphocytes # 1.8 K/mcL (0.6-4.6); Lymphocytes % 20.5 %; Mean Corpuscular HGB Conc 35.2 g/dL (31.6-35.5); Mean Corpuscular Hemoglobin 31.5 pg (28.0-33.3); Mean Corpuscular Volume 89.6 fL (83.0-100.0); Mean Platelet Volume 10.4 fL (9.4-12.4); Monocytes # 0.6 K/mcL (0.0-1.3); Monocytes % 6.2 %; Neutrophils # 6.4 K/mcL (1.6-8.9); Platelet Count 116 K/mcL (140-400); Red Blood Count 3.36 M/mcL (3.82-4.97); Red Cell Distribution Width 12.5 % (11.5-14.5)
[2017-07-01 05:57] LABS: BUN/Creatinine Ratio 14 (6-26); Blood Urea Nitrogen 11 mg/dL (8-23); Calcium 7.5 mg/dL (8.6-10.3); Carbon Dioxide 28 mEq/L (23-29); Chloride 103 mEq/L (98-107); Glucose 93 mg/dL (70-105); Osmolality,Calculated 281 (280-300); Potassium 3.4 mEq/L (3.5-5.1); Sodium 136 mEq/L (136-145); eGFR For African Americans > 60 (> 60); eGFR For Non-African Americans > 60 (> 60)
[2017-07-01] MEDS: *HR* Digoxin 0.125 MG TABLET PO SCH (07:48)
[2017-07-01] MEDS: Apixaban 5 MG TABLET PO SCH ×2 (07:48→20:16)
[2017-07-01] MEDS: Insulin LISPRO 300 UNITS/3 ML VIAL SQ SCH ×3 (07:48→16:30)
[2017-07-01] MEDS: Lactobacillus 1 EACH CAP.SPRINK PO SCH ×2 (07:48→20:15)
[2017-07-01] MEDS: Azithromycin 500 MG in D5% in Water 250 ML IVPB SCH (11:11)
--- NOTE | 2017-07-01 14:23 | Internal Med Progress Note ---
Date of Encounter: 07/01/17 Time of Encounter: 14:15 - Assessment and plan (1) UTI (urinary tract infection) Current Visit: Yes Status: Acute Assessment and plan: July 01. Preliminary urine culture shows gram-negative rods. Continue Rocephin, Zithromax and lactobacillus. Anticipate discharge to SNF tomorrow if stable. Qualifiers: Urinary tract infection type: acute cystitis Hematuria presence: with hematuria Qualified Code(s): N30.01 - Acute cystitis with hematuria (2) Pneumonia Current Visit: Yes Status: Acute Assessment and plan: July 01. Continue Rocephin, Zithromax, and lactobacillus. Qualifiers: Pneumonia type: due to unspecified organism Laterality: left Lung location: lower lobe of lung Qualified Code(s): J18.1 - Lobar pneumonia, unspecified organism (3) Hypertension Current Visit: No Status: Chronic Assessment and plan: July 01. Continue Zestril Qualifiers: Hypertension type: essential hypertension Qualified Code(s): I10 - Essential (primary) hypertension (4) Atrial fibrillation Current Visit: No Status: Chronic Assessment and plan: July 01. Continue Rythmol and Eliquis Qualifiers: Atrial fibrillation type: chronic Qualified Code(s): I48.2 - Chronic atrial fibrillation - Subjective Interval history: July 01. She has no new complaints and feels better. - Constitutional Vitals: Temp Pulse Resp BP Pulse Ox 98.3 F 60 20 114/57 96 07/01/17 12:20 07/01/17 12:20 07/01/17 12:20 07/01/17 12:20 07/01/17 12:20 Exam: She is resting comfortably in bed and appears in no acute distress. Her affect is bright and cheerful. I reviewed her medications and lab results. Internal Medicine: Result - Labs CBC & Chem 7: 07/01/17 05:25 07/01/17 05:25 Labs: Short CBC 07/01/17 Range/Units 05:25 WBC 8.9 (4.3-11.1) K/mcL Hgb 10.6 L D (11.5-15.4) g/dL Hct 30.1 L (35.3-44.9) % Plt Count 116 L (140-400) K/mcL Neutrophils # 6.4 (1.6-8.9) K/mcL BMP 03/26/18 05:25 Sodium 136 Potassium 3.4 L Chloride 103 Carbon Dioxide 28 BUN 11 Creatinine 0.79 Glucose 93 Calcium 7.5 L - VTE Documentation of Mechanical Device: Graduated compression elastic hosiery Consult Discharge Plan - Plan Referrals: Lexis Anderson DO [Primary Care Provider] - 1 week
[2017-07-02 06:37] VITALS: BP 147/65
[2017-07-02] MEDS: cefTRIAXone 2,000 MG in Water for inj. (sterile) 20 ML 20 ML IVP SCH (07:53)
[2017-07-02] MEDS: *HR* Digoxin 0.125 MG TABLET PO SCH (07:54)
[2017-07-02] MEDS: Lactobacillus 1 EACH CAP.SPRINK PO SCH (07:54)
[2017-07-02] MEDS: Apixaban 5 MG TABLET PO SCH (07:57)
[2017-07-02] MEDS: *HR* HYDROcodone/Acet 7.5/325 mg TABLET PO PRN (07:57)
[2017-07-02] MEDS: Insulin LISPRO 300 UNITS/3 ML VIAL SQ SCH (08:05)
--- NOTE | 2017-07-02 10:22 | Discharge Summary ---
Date of Encounter: 07/02/17 Time of Encounter: 10:10 - Discharge Diagnosis (1) UTI (urinary tract infection) Priority: Primary Status: Acute Qualifiers: Urinary tract infection type: acute cystitis Hematuria presence: with hematuria Qualified Code(s): N30.01 - Acute cystitis with hematuria (2) Pneumonia Priority: Secondary Status: Acute Qualifiers: Pneumonia type: due to unspecified organism Laterality: left Lung location: lower lobe of lung Qualified Code(s): J18.1 - Lobar pneumonia, unspecified organism (3) Hypertension Priority: Secondary Status: Chronic Qualifiers: Hypertension type: essential hypertension Qualified Code(s): I10 - Essential (primary) hypertension (4) Atrial fibrillation Priority: Secondary Status: Chronic Qualifiers: Atrial fibrillation type: chronic Qualified Code(s): I48.2 - Chronic atrial fibrillation Hospital course: Ms. García is a 66 year old female who had onset of fevers and chills at the halfway yesterday. Her family noted she had poor oral intake and did not feel well. She was evaluated in emergency room and found to have UTI and possible left lower lobe pneumonia. She was admitted to [facility] floor for ongoing care needs. Initial orders were written by the emergency room physician. I saw her on June 30 and performed a history and physical. She was given Rocephin in emergency room. I added Zithromax and lactobacillus. Urine culture and blood cultures returned showing Klebsiella pneumonia. She had clinically improved with WBC normalizing by July 01 with resolution of the left shift. She will continue with Levaquin and lactobacillus for 3 additional days at discharge back to the halfway. She will follow with me at [facility]. - Time Spent with Patient Total time spent providing and/or coordinating discharge services: - Discharge Medications Prescriptions: levoFLOXacin [Levaquin] 500 mg PO DAILY #3 tablet Home Medications: Apixaban [Eliquis] 5 mg PO BID 05/26/17 [History] DULoxetine [Cymbalta] 30 mg PO DAILY 05/26/17 [History] Ondansetron ODT [Zofran ODT] 4 mg SL Q12HR PRN 05/26/17 [History] Propafenone HCl [Rythmol Sr] 225 mg PO BID 05/26/17 [History] Clopidogrel [Plavix] 75 mg PO DAILY tablet 06/01/17 [Rx] Digoxin [Lanoxin] 0.125 mg PO DAILY tablet 06/14/17 [Rx] Hydrocodone/Acetaminophen [Hydrocodone-Acetamin 7.5-300] 0.5 each PO Q6H PRN 14 Days #28 tablet 06/14/17 [Rx] Methyl Salicylate/Menth/Camph [Bengay Ultra Strength Cream] 113 gm TP BID 365 Days cream..g. 06/14/17 [Rx] ALPRAZolam [Xanax 0.5 MG Tablet] 0.5 mg PO Q8H PRN 06/29/17 [History] Acetaminophen [Extra Strength Non-Aspirin] 500 mg PO Q4H PRN 06/29/17 [History] Lactobacillus [Culturelle] 1 each PO BID 3 Days cap.[email or web address] 07/02/17 [Rx] levoFLOXacin [Levaquin] 500 mg PO DAILY #3 tablet 07/02/17 [Rx] Allergies/Adverse Reactions: 3 Allergy/AdvReac Type Severity Reaction Status Date / Time aspirin AdvReac See Verified 05/26/17 11:51 Comments Date of admission: 07/01/17 14:26 Primary care physician: Lexis Anderson - Constitutional Vitals: Temp Pulse Resp BP Pulse Ox 98.7 F 66 18 147/65 95 07/02/17 06:34 07/02/17 06:34 07/02/17 06:34 07/02/17 06:34 07/02/17 06:34 - Patient Status Disposition: Transfer SNF Condition: Good Functional capacity at discharge: uses cane/walker Overall status at discharge: patient is progressing back to baseline - Discharge Instructions - Diet and Activity Activity: as per physical therapy Diet: advance to your usual diet - VTE Documentation of Mechanical Device: Graduated compression elastic hosiery
--- NOTE | 2017-07-02 10:26 | Physician Discharge Referral ---
[facility] Referral Info Transfer To: [facility] Provider in Charge: Jam Provider in Charge after Transfer: PCP (Jam) - Diagnosis (1) UTI (urinary tract infection) Priority: Primary Status: Acute (2) Pneumonia Priority: Secondary Status: Acute (3) Hypertension Priority: Secondary Status: Chronic (4) Atrial fibrillation Priority: Secondary Status: Chronic Prognosis: Good Aware of Diagnosis: Patient, Family Aware of Prognosis: Patient, Family - Transfer Medications Prescriptions: levoFLOXacin [Levaquin] 500 mg PO DAILY #3 tablet Home Medications: Apixaban [Eliquis] 5 mg PO BID 05/26/17 [History] DULoxetine [Cymbalta] 30 mg PO DAILY 05/26/17 [History] Ondansetron ODT [Zofran ODT] 4 mg SL Q12HR PRN 05/26/17 [History] Propafenone HCl [Rythmol Sr] 225 mg PO BID 05/26/17 [History] Clopidogrel [Plavix] 75 mg PO DAILY tablet 06/01/17 [Rx] Digoxin [Lanoxin] 0.125 mg PO DAILY tablet 06/14/17 [Rx] Hydrocodone/Acetaminophen [Hydrocodone-Acetamin 7.5-300] 0.5 each PO Q6H PRN 14 Days #28 tablet 06/14/17 [Rx] Methyl Salicylate/Menth/Camph [Bengay Ultra Strength Cream] 113 gm TP BID 365 Days cream..g. 06/14/17 [Rx] ALPRAZolam [Xanax 0.5 MG Tablet] 0.5 mg PO Q8H PRN 06/29/17 [History] Acetaminophen [Extra Strength Non-Aspirin] 500 mg PO Q4H PRN 06/29/17 [History] Lactobacillus [Culturelle] 1 each PO BID 3 Days cap.sprink 07/02/17 [Rx] levoFLOXacin [Levaquin] 500 mg PO DAILY #3 tablet 07/02/17 [Rx] Allergies/Adverse Reactions: 3 Allergy/AdvReac Type Severity Reaction Status Date / Time aspirin AdvReac See Verified 05/26/17 11:51 Comments - Respiratory Orders Smoking Cessation: Smoking cessation has been advised. For more information, call the [facility] Quit Line at 5-842-QOBX-NOW. - Mobility Orders Ambulate - Rehabiliation Orders Rehab Potential: Fair Rehab Orders: Evaluation for Physical Therapy, Evaluation for Occupational Therapy CERTIFICATION: I certify that the transfer of the above named patient to an Extended Care Facility is necessary for the continuing treatment of the diagnosis listed. The above information is true and accurate reflection of patient's current condition. Confidential - Redisclosure prohibited without a patient's written consent.
== END 2017-07-02 11:09 | DRG 871 ==
LOC: INPPIK 17:30 → EMEROOPIK 17:30 → INPPIK 21:13
PROVIDERS: ADMIT Emergency Medicine; ATTEND Internal Medicine